=== PATIENT | female | born 1960 | race Caucasian/White ===

== ENCOUNTER 2017-01-30 13:35 | Emergency (ER) | payer OTHER ==
[~2017-01-30 13:35] MED LIST: CELEBREX200 MG PO; CLONAZEPAM0.5 M2 PO; COMPOUND PO; COMPOUND VG; CYCLOBENZAPRINE10 M1 PO; CYMBALTA60 M1 PO; ESTRACE2 M2 PO; ESTRACE42.5 G1 VG; ESTRADIOL TP; HYDROCODON-ACE1 EA17 PO; KEPPRA PO; KLONOPIN0.5 M1 PO; KLONOPIN0.5 MG PO; LAMICTAL150 M1 PO; LEXAPRO10 M2 PO; LEXAPRO20 M1 PO; MELOXICAM7.5 M1 PO; MIRALAX17 G2 PO; MULTIVITAMINS1 EAC6 PO; NORCO 5/325 TAB1 TAB PO; NORCO 5/3251 TAB PO; NORCO 7.5-3251 EACH PO; STOOL SOFTENER100 M3 PO; UNISOM SLEEP AI25 M1 PO; WELLBUTRIN SR150 M2 PO; XANAX0.5 M1 PO; ZOFRAN4 MG PO
[2017-01-30 15:29] LABS: BASO % 0.2 % (0-2); EOS % 5.8 % (0-7); EOSINOPHIL ABSOLUTE COUNT 0.5 tho/cmm (0.0-0.7); HCT-HEMATOCRIT 38.1 % (34.0-49.0); HGB-HEMOGLOBIN 12.4 gm/dl (12.0-15.5); IMMATURE GRANULOCYTES ABSOLUTE 0.02 tho/cmm (0-0.03); IMMATURE GRANULOCYTES PERCENT 0.2 % (0-0.3); LYMPH % 21.2 % (20-45); LYMPH ABSOLUTE COUNT 1.7 tho/cmm (0.8-4.5); MCHC MEAN CORPUSCULAR HGB CONC 32.5 % (32.0-36.0); MEAN PLATELET VOLUME 10.4 cmc (9.4-12.4); MONO % 9.8 % (0-12); MONOCYTE ABSOLUTE COUNT 0.8 tho/cmm (0.0-1.2); NEUTROPHIL ABSOLUTE COUNT 5.1 tho/cmm (1.6-8.0); NEUTROPHIL-AUTOMATED 5.1 tho/cmm (1.6-8.0); NEUTROPHILS % 62.8 % (40-80); PLATELET COUNT 240 tho/cmm (150-450); RED BLOOD COUNT 4.28 mil/cmm (4.00-5.20); RED CELL DISTRIBUTION WIDTH 14.6 % (12.4-16.4); WHITE BLOOD COUNT 8.2 tho/cmm (4.0-10.0)
[2017-01-30 15:37] LABS: ANION GAP 12 mmol/L (0-20); BLOOD UREA NITROGEN 12 mg/dl (6-24); CALCIUM 8.6 mg/dl (8.5-10.5); CARBON DIOXIDE-VENOUS 25 mmol/L (22-32); CHLORIDE 106 mmol/l (96-110); GLUCOSE 92 mg/dL (70-110); POTASSIUM 3.9 mmol/L (3.7-5.1); SODIUM 139 mmol/L (135-145); eGFR VALUE FOR BLACK >90 mL/Min
[2017-01-30 16:09] LABS: URINE BILIRUBIN NEGATIVE (NEG); URINE BLOOD NEGATIVE (NEG); URINE GLUCOSE (UA) NEGATIVE (NEG); URINE KETONE NEGATIVE (NEG); URINE LEUKOCYTE ESTERASE NEGATIVE (NEG); URINE NITRITE NEGATIVE (NEG); URINE PH 6.5 (5.0-8.0); URINE PROTEIN NEGATIVE (NEG); URINE SPECIFIC GRAVITY 1.005 (1.003-1.030)
[2017-01-30 16:19] LABS: URINE APPEARANCE CLEAR; URINE COLOR PALE YELLOW
[2017-01-30] MEDS ORDERED: ZITHROMAX250 M1 PO (16:19)
[2017-01-30] MEDS ORDERED: TESSALON PERLE100 M1 PO (16:20)
== END 2017-01-30 17:33 ==
LOC: EDMED 13:35
PROVIDERS: Emergency Medicine
DX: J18.1 Lobar pneumonia, unspecified organism (principal); F43.10 Post-traumatic stress disorder, unspecified
CPT/HCPCS: J7030